=== PATIENT | female | born 2000 | race Caucasian/White ===

== ENCOUNTER → 2022-02-27 | Outpatient (CLI) | payer BC ==
[2022-02-27 08:10] LABS: HEMOGLOBIN 12.9 gm/dl (12.3-15.3); RED BLOOD COUNT 4.69 M/UL (4.00-5.10); WHITE BLOOD COUNT 6.5 K/UL (4.5-11.0)
[2022-02-27 08:57] LABS: BUN/CREATININE RATIO 16 (0-10)
[2022-02-28 08:14] LABS: PROGESTERONE 8.7 ng/mL (.); TESTOSTERONE, SERUM 31 ng/dL (13-71)
[2022-02-28 10:14] LABS: INSULIN 8.3 uIU/mL (2.6-24.9)
== END ==
LOC: LAB 07:07
PROVIDERS: Nurse Practitioner Family
DX: N94.6 Dysmenorrhea, unspecified (principal); R53.83 Other fatigue; F41.9 Anxiety disorder, unspecified; E55.9 Vitamin D deficiency, unspecified; E53.8 Deficiency of other specified B group vitamins; D64.9 Anemia, unspecified
CPT/HCPCS: 36415; 80053; 82607; 82652; 82670; 82728; 83036; 83540; 83550; 84144; 84403; 84439; 84443; 85025